=== PATIENT | female | born 1995 | race Caucasian/White ===

== ENCOUNTER 2019-10-03 10:54 | Outpatient (CLI) | payer BC, SELFPAY ==
[2019-10-03 11:29] LABS: Potassium 4.2 mmol/L (3.4-5.0)
[2019-10-03 11:31] LABS: Alanine Aminotransferase 15 U/L (4-35); Albumin Level 4.3 g/dL (3.5-5.1); Alkaline Phosphatase 74 U/L (38-126); Aspartate Amino Transferase 17 U/L (14-36); Bilirubin,Total 0.3 mg/dL (0.2-1.3); Blood Urea Nitrogen 12 mg/dL (7-17); Calcium 9.1 mg/dL (8.4-10.2); Carbon Dioxide 22 mmol/L (22-30); Chloride 106 mmol/L (98-107); Cholesterol 177 mg/dL (0-200); Estimated Glomerular Filt Rate > 60; Glucose 93 mg/dL (65-105); HDL Direct 50 mg/dL; Sodium 140 mmol/L (137-145); Triglycerides 268 mg/dL (<150)
[2019-10-03 11:40] LABS: LDL Cholesterol Direct 87 mg/dL
[2019-10-03 11:57] LABS: Vitamin D 25 Hydroxy 16.7 ng/mL
== END 2019-10-03 10:55 | disposition home or self-care (01) ==
PROVIDERS: PCP Emergency Medicine; Visit Provider Emergency Medicine
DX: Z13.6 Encounter for screening for cardiovascular disorders (principal); E55.9 Vitamin D deficiency, unspecified
CPT/HCPCS: 36415; 80053; 80061; 82306